=== PATIENT | female | born 1935 | race Caucasian/White ===

== ENCOUNTER 2019-03-14 09:36 | Inpatient (IN) ==
[2019-03-14] MEDS ORDERED: Triamcinolone Acet 0.1% CRM 15 GM TUBE TP PRN (13:54)
[2019-03-14] MEDS ORDERED: Mag Hydrox/Al Hydrox/Simeth 30 ML UDC PO PRN (14:43)
[2019-03-14] MEDS ORDERED: Melatonin 3 MG TABLET PO PRN (14:43)
[2019-03-14] MEDS ORDERED: Ondansetron ODT 4 MG TAB.RAPDIS SL PRN (14:43)
[2019-03-14] MEDS: Famotidine 20 MG TABLET PO SCH (20:45)
[2019-03-14] MEDS: *HR* HYDROcodone/Acet 5/325 mg TABLET PO PRN (20:45)
[2019-03-15] MEDS: *HR* Enoxaparin 40 MG/0.4 ML SYRINGE SQ SCH (06:56)
[2019-03-15 07:00] LABS: Basophils # 0.1 K/mcL (0.0-0.2); Basophils % 1.1 %; Eosinophils # 0.2 K/mcL (0.0-0.6); Eosinophils % 4.3 %; Hematocrit 34.5 % (35.3-44.9); Hemoglobin 10.8 g/dL (11.5-15.4); Immature Granulocytes % 0.2 % (0-4); Lymphocytes # 1.7 K/mcL (0.6-4.6); Lymphocytes % 29.7 %; Mean Corpuscular HGB Conc 31.3 g/dL (31.6-35.5); Mean Corpuscular Hemoglobin 25.7 pg (28.0-33.3); Mean Corpuscular Volume 82.1 fL (83.0-100.0); Mean Platelet Volume 8.8 fL (9.4-12.4); Monocytes # 0.6 K/mcL (0.0-1.3); Platelet Count 282 K/mcL (140-400); Red Cell Distribution Width 15.2 % (11.5-14.5); Segmented Neutrophils % 53.7 %; White Blood Count 5.6 K/mcL (4.3-11.1)
[2019-03-15 07:19] LABS: Alanine Aminotransferase 11 Units/L (7-52); Albumin 3.8 g/dL (3.5-5.7); Albumin/Globulin Ratio 1.8 (1.1-2.2); Alkaline Phosphatase 41 Units/L (34-104); Aspartate Amino Transferase 12 Units/L (13-39); BUN/Creatinine Ratio 26 (6-26); Bilirubin,Total 0.3 mg/dL (0.3-1.0); Blood Urea Nitrogen 19 mg/dL (8-23); Calcium 9.7 mg/dL (8.6-10.3); Carbon Dioxide 29 mEq/L (23-29); Chloride 101 mEq/L (98-107); Globulin 2.1 g/dL (2.4-3.5); Glucose 114 mg/dL (70-105); Magnesium 1.8 mg/dL (1.6-2.6); Osmolality,Calculated 285 (280-300); Potassium 4.4 mEq/L (3.5-5.1); Sodium 136 mEq/L (136-145); Total Protein 5.9 g/dL (6.4-8.9); eGFR For African Americans > 60 (> 60); eGFR For Non-African Americans > 60 (> 60)
[2019-03-15] MEDS: Metoprolol XL (24 HR) Succ 50 MG TAB.ER.24H PO SCH (09:32)
[2019-03-15] MEDS: *HR* HYDROcodone/Acet 5/325 mg TABLET PO PRN ×2 (09:32→20:40)
[2019-03-15] MEDS: Multivit/Ca/Min/Fe/FA 1 TAB TABLET PO SCH (09:32)
[2019-03-15] MEDS: Famotidine 20 MG TABLET PO SCH ×2 (09:32→20:40)
[2019-03-15] MEDS: Cholecalciferol (D-3) 1,000 UNIT (25MCG) TABLET PO SCH (09:32)
[2019-03-15] MEDS: Lisinopril 20 MG TABLET PO SCH (09:32)
[2019-03-15] MEDS: amLODIPine 5 MG TABLET PO SCH (09:32)
[2019-03-15] MEDS: Tiotropium 18 MCG inhalation IH SCH (09:36)
[2019-03-15] MEDS: Albuterol 2.5 MG/3 ML NEBULIZER IH PRN ×3 (09:44→21:11)
[2019-03-15] MEDS ORDERED: Bisacodyl 10 MG RECTAL SUPPOSITORY RC SCH (10:47)
--- NOTE | 2019-03-15 11:09 | Internal Med History&Physical ---
Date of Encounter: 03/15/19 Time of Encounter: 11:07 Assessment and Plan (1) General weakness Current visit: Yes Status: Acute PT and OT to eval and treat. Assist with ADLs as necessary. (2) HTN (hypertension) Current visit: Yes Status: Chronic Controlled with current medication. Monitor blood pressure. Qualifiers: Hypertension type: essential hypertension Qualified Code(s): I10 - Essential (primary) hypertension (3) CAD (coronary artery disease) Current visit: Yes Status: Chronic Denies chest pain. Continue current medication. Carotid duplex shows bilateral non-stenotic plaque. Last echocardiogram was in August 2018. Had 2 stents placed in 2004 and 1 and 2009. Qualifiers: Coronary Disease-Associated Artery/Lesion type: unspecified vessel or lesion type [place] vs. transplanted heart: [place] heart Associated angina: without angina Qualified Code(s): I25.10 - Atherosclerotic heart disease of [place] coronary artery without angina pectoris (4) Dizziness Current visit: Yes Status: Acute Improving. Continue PT and OT. Will follow progress. (5) Headache Current visit: Yes Status: Acute Improving. Follow up with neurology as scheduled. Qualifiers: Headache type: unspecified Headache chronicity pattern: chronic headache Intractability: not intractable Qualified Code(s): R51 - Headache (6) COPD (chronic obstructive pulmonary disease) Current visit: Yes Status: Chronic Controlled with inhaled meds. Monitor. Qualifiers: COPD type: unspecified COPD Qualified Code(s): J44.9 - Chronic obstructive pulmonary disease, unspecified Internal Medicine - H&P: HPI Admitted From: Hospital to Hospital Transfer Plans for Post Hospital Care: Home History of present illness: Ms. Pizarro is a 84 year old female admitted to inpatient rehab unit for general weakness and dizziness. Transferred from [facility] after presenting to the emergency room with dizziness and headache. CT of head without acute abnormality but shows extensive small and large vessel disease. States that headache and dizziness is starting to resolve. Past medical history includes hypertension, COPD, CAD status post cabbage, hyperlipidemia, CBD, PAD, CKD stage2. Denies fever, chills, nausea vomiting or diarrhea. Denies shortness of breath or chest pain. States she has been constipated discussed dulcolax today. Lives at home with son. PT and OT to eval and treat. Past Med Surg Social Fam HX - Past Medical History Medical history: arthritis, cancer, COPD, coronary artery disease, DVT, GERD, hyperlipidemia, hypertension, malignancy, myocardial infarction, pulmonary embolus, renal disease Additional medical history: bladder cancer. vertigo Psychiatric history: anxiety - Past Surgical History Surgical History: angioplasty/stent, appendectomy, cancer surgery, cholecystectomy, coronary bypass (CABG), herniorrhaphy, hysterectomy, knee replacement, orthopedic, other, UZAIR/BSO Additional surgical history: RTKR. bowel surgery. tonsillectomy. L thumb reattachment - Social History Smoking Status: Former smoker Smokeless Tobacco Status: No Alcohol use: none Drug use: none - Family History Mother Living Status: Hx Family Cardiac Disorders: Yes Hx Family Cancer: Yes Internal Medicine - H&P: Meds Albuterol Neb [Proventil Neb] 2.5 mg IH TID PRN 03/10/19 [History] Albuterol Sulfate [Proventil Inhaler] 2 puff IH Q6H PRN 03/10/19 [History] Atorvastatin Calcium [Lipitor] 20 mg PO HS 03/10/19 [History] Cholecalciferol (D-3) [Vitamin D] 2,000 unit PO DAILY 03/10/19 [History] Clopidogrel [Plavix] 75 mg PO DAILY 03/10/19 [History] Lisinopril [Zestril] 40 mg PO DAILY 03/10/19 [History] Metoprolol Succinate 100 mg PO DAILY 03/10/19 [History] Multivitamin [One Daily Multivitamin] 1 tab PO DAILY 03/10/19 [History] Omeprazole [PriLOSEC] 40 mg PO DAILY 03/10/19 [History] Ranitidine HCl [Heartburn Relief] 150 mg PO BID 03/10/19 [History] Tiotropium [Spiriva] 1 puff IH DAILY 03/10/19 [History] Triamcinolone Acetonide 1 applic TP BID PRN 03/10/19 [History] HYDROcodone/Acet 5/325 mg [[place] 5-325 mg] 1 tab PO BID PRN 5 Days #10 tablet 03/14/19 [Rx] Meclizine [Antivert] 12.5 mg PO TID PRN #20 tablet 03/14/19 [Rx] amLODIPine [Norvasc] 10 mg PO DAILY tablet 03/14/19 [Rx] Allergy/AdvReac Type Severity Reaction Status Date / Time cephalexin Allergy Rash Verified 10/15/18 07:50 doxycycline AdvReac Gastrointestinal Verified 10/15/18 07:50 Upset meperidine AdvReac Gastrointestinal Verified 10/15/18 07:50 Upset Penicillins AdvReac YEAST Verified 10/15/18 07:50 INFECTION pravastatin AdvReac Gastrointestinal Verified 10/15/18 07:50 Upset Sulfa (Sulfonamide AdvReac Gastrointestinal Verified 10/15/18 07:50 Antibiotics) Upset All Systems PM: A 10-system review of systems was performed and is negative for pertinent findings except as documented above in the HPI. - Constitutional Constitutional: no chills, no fever(s), no night sweats - EENT Eyes: no change in vision, no discharge, no pain, no photophobia Ears: no ear discharge, no ear pain, no tinnitus Nose, mouth and throat: no dysphagia, no nasal discharge, no neck pain, no sore throat - Cardiovascular Cardiovascular ROS IM: no chest pain, no diaphoresis, no dyspnea, no lightheadedness, no palpitations, no syncope - Respiratory Respiratory: no cough, no dyspnea, no wheezing, no excessive phlegm production - Gastrointestinal Gastrointestinal: no abdominal pain, no diarrhea, no hematemesis, no hematochezia, no melena, no nausea, no vomiting - Genitourinary Genitourinary: no change in urinary stream, no dysuria, no flank pain, no hematuria - Musculoskeletal Musculoskeletal ROS IM: no numbness, no tingling - Integumentary Integumentary IM: no rash, no unusual bruising - Neurological Neurological ROS: no confusion, no convulsions, no focal weakness, no numbness, no tingling, no tremor(s) - Hematologic/Lymphatic Hematologic/Lymphatic: no easy bruising - Constitutional Vitals: Temp Pulse Resp BP Pulse Ox 99 F 61 18 149/62 95 03/15/19 06:40 03/15/19 06:40 03/15/19 09:46 03/15/19 06:40 03/15/19 09:46 General appearance: Present: cooperative, A&O X 3, pleasant, no acute distress, answers questions appropriately - Head Head exam: Present: atraumatic, normocephalic - Eye Eye exam: Present: PERRL, conjuntiva pink, sclera anicteric Pupils: Present: PERRL - Neck Neck exam general surgery: Present: supple, trachea midline. Absent: lymphadenopathy - Respiratory Respiratory exam: Present: CTAB. Absent: accessory muscle use, rales, rhonchi, wheezes - Cardiovascular Cardiovascular exam: Present: RRR, +S1, +S2. Absent: diastolic murmur, gallop, rubs, systolic murmur - GI/Abdominal GI/Abdominal exam: Present: normal bowel sounds, soft, no peritoneal signs. Absent: distended, tenderness - Extremities Exam Extremities exam: Present: warm, radial pulses palpable and symmetrical. Absent: calf tenderness, cyanotic, pedal edema - Neurological Exam Neurological exam: Present: CN II-XII intact, oriented X3, no focal deficits. Absent: pronater drift, facial droop, speech deficit - Skin Skin exam: Present: dry, intact Internal Med - H&P Results - Labs CBC & Chem 7: 03/15/19 06:45 03/15/19 06:45 Labs: Short CBC 03/15/19 Range/Units 06:45 WBC 5.6 (4.3-11.1) K/mcL Hgb 10.8 L (11.5-15.4) g/dL Hct 34.5 L (35.3-44.9) % Plt Count 282 (140-400) K/mcL Neutrophils # 3.0 (1.6-8.9) K/mcL BMP 03/15/19 06:45 Sodium 136 Potassium 4.4 Chloride 101 Carbon Dioxide 29 BUN 19 Creatinine 0.74 Glucose 114 H Calcium 9.7 Liver Function 03/15/19 Range/Units 06:45 Total Bilirubin 0.3 (0.3-1.0) mg/dL AST 12 L (13-39) Units/L ALT 11 (7-52) Units/L Alkaline Phosphatase 41 (34-104) Units/L Albumin 3.8 (3.5-5.7) g/dL
[2019-03-15] MEDS ORDERED: Bisacodyl 10 MG RECTAL SUPPOSITORY RC PRN (17:18)
[2019-03-16] MEDS: Acetaminophen 325 MG TABLET PO PRN ×2 (03:03→16:27)
[2019-03-16] MEDS: *HR* Enoxaparin 40 MG/0.4 ML SYRINGE SQ SCH (05:18)
[2019-03-16] MEDS: Cholecalciferol (D-3) 1,000 UNIT (25MCG) TABLET PO SCH (07:46)
[2019-03-16] MEDS: Multivit/Ca/Min/Fe/FA 1 TAB TABLET PO SCH (07:47)
[2019-03-16] MEDS: amLODIPine 5 MG TABLET PO SCH (07:47)
[2019-03-16] MEDS: Metoprolol XL (24 HR) Succ 50 MG TAB.ER.24H PO SCH (07:47)
[2019-03-16] MEDS: Lisinopril 20 MG TABLET PO SCH (07:47)
[2019-03-16] MEDS: Famotidine 20 MG TABLET PO SCH ×2 (07:47→21:05)
[2019-03-16] MEDS: *HR* HYDROcodone/Acet 5/325 mg TABLET PO PRN ×2 (07:53→21:05)
[2019-03-16] MEDS: Tiotropium 18 MCG inhalation IH SCH (10:01)
--- NOTE | 2019-03-16 11:08 | Internal Med Progress Note ---
Date of Encounter: 03/16/19 Time of Encounter: 11:06 - Assessment and plan (1) General weakness Current Visit: Yes Status: Acute Assessment and plan: Continue PT and OT. Will follow progress. (2) HTN (hypertension) Current Visit: Yes Status: Chronic Assessment and plan: Controlled with current medication. Monitor blood pressure. Qualifiers: Hypertension type: essential hypertension Qualified Code(s): I10 - Essential (primary) hypertension (3) CAD (coronary artery disease) Current Visit: Yes Status: Chronic Assessment and plan: Denies chest pain. Continue current medication. Qualifiers: Coronary Disease-Associated Artery/Lesion type: unspecified vessel or lesion type [place] vs. transplanted heart: [place] heart Associated angina: without angina Qualified Code(s): I25.10 - Atherosclerotic heart disease of [place] coronary artery without angina pectoris (4) Dizziness Current Visit: Yes Status: Acute Assessment and plan: Improving. Continue meclizine as needed. (5) COPD (chronic obstructive pulmonary disease) Current Visit: Yes Status: Chronic Assessment and plan: Controlled with current medication. Qualifiers: COPD type: unspecified COPD Qualified Code(s): J44.9 - Chronic obstructive pulmonary disease, unspecified - Time Spent With Patient less than 15 minutes - Subjective Interval history: Participating well with therapy. Denies pain. States dizziness is improving. Denies fever, chills, nausea vomiting or diarrhea. Denies shortness of breath or chest pain. Denies urinary or bowel issues. - Constitutional Vitals: Temp Pulse Resp BP Pulse Ox 97.6 F 67 18 129/82 97 03/16/19 07:00 03/16/19 07:00 03/16/19 10:01 03/16/19 07:00 03/16/19 10:01 General appearance: Present: cooperative, A&O X 3, pleasant, no acute distress, answers questions appropriately - Head Head exam: Present: atraumatic, normocephalic - Eye Eye exam: Present: PERRL, conjuntiva pink, sclera anicteric Pupils: Present: PERRL - Neck Neck exam general surgery: Present: supple, trachea midline. Absent: lymphadenopathy - Respiratory Respiratory exam: Present: CTAB. Absent: accessory muscle use, rales, rhonchi, wheezes - Cardiovascular Cardiovascular exam: Present: RRR, +S1, +S2. Absent: diastolic murmur, gallop, rubs, systolic murmur - GI/Abdominal GI/Abdominal exam: Present: normal bowel sounds, soft, no peritoneal signs. Absent: distended, tenderness - Extremities Exam Extremities exam: Present: warm, radial pulses palpable and symmetrical. Absent: calf tenderness, cyanotic, pedal edema - Neurological Exam Neurological exam: Present: CN II-XII intact, oriented X3, no focal deficits. Absent: pronater drift, facial droop, speech deficit - Skin Skin exam: Present: dry, intact Internal Medicine: Result - Labs CBC & Chem 7: 03/15/19 06:45 03/15/19 06:45 Consult Discharge Plan - Plan Referrals: Carmen Haile DO [Primary Care Provider] -
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
[2019-03-16] MEDS: Albuterol 2.5 MG/3 ML NEBULIZER IH PRN (21:18)
[2019-03-17] MEDS: Acetaminophen 325 MG TABLET PO PRN ×2 (05:10→15:28)
[2019-03-17] MEDS: *HR* Enoxaparin 40 MG/0.4 ML SYRINGE SQ SCH (06:13)
[2019-03-17] MEDS ORDERED: cloNIDine HCl 0.1 MG TABLET PO PRN (08:08)
[2019-03-17] MEDS: Multivit/Ca/Min/Fe/FA 1 TAB TABLET PO SCH (08:33)
[2019-03-17] MEDS: Famotidine 20 MG TABLET PO SCH ×2 (08:33→20:10)
[2019-03-17] MEDS: Lisinopril 20 MG TABLET PO SCH (08:33)
[2019-03-17] MEDS: Cholecalciferol (D-3) 1,000 UNIT (25MCG) TABLET PO SCH (08:33)
[2019-03-17] MEDS: amLODIPine 5 MG TABLET PO SCH (08:33)
[2019-03-17] MEDS: Metoprolol XL (24 HR) Succ 50 MG TAB.ER.24H PO SCH (08:33)
[2019-03-17] MEDS: *HR* HYDROcodone/Acet 5/325 mg TABLET PO PRN ×2 (08:48→20:10)
[2019-03-17] MEDS ORDERED: MOM Conc 10 ML UD.LIQ PO PRN (08:53)
[2019-03-17] MEDS: Tiotropium 18 MCG inhalation IH SCH (09:19)
--- NOTE | 2019-03-17 09:26 | Internal Med Progress Note ---
Date of Encounter: 03/17/19 Time of Encounter: 09:23 - Assessment and plan (1) Vertigo Current Visit: No Status: Acute Assessment and plan: Patient currently denies any dizziness while in therapy. Patient appears relaxed states that therapy is progressing well for her and she is anxious to be discharged tomorrow. Denies any symptoms of near-syncope. Denies palpitations or chest discomforts (2) CAD (coronary artery disease) Current Visit: No Status: Acute Assessment and plan: No acute issues. Patient denies any chest discomforts or palpitations. We will continue with current medications and continue with therapy Qualifiers: Coronary Disease-Associated Artery/Lesion type: unspecified vessel or lesion type [place] vs. transplanted heart: unspecified whether [place] or transplanted heart Associated angina: angina presence unspecified Qualified Code(s): I25.10 - Atherosclerotic heart disease of [place] coronary artery without angina pectoris (3) COPD (chronic obstructive pulmonary disease) Current Visit: Yes Status: Chronic Assessment and plan: No acute issues. Lungs are clear throughout with diminished bases. No productive cough noted. Patient denies any dyspnea during exertion. We will continue with current medications and bronchodilators. Qualifiers: COPD type: unspecified COPD Qualified Code(s): J44.9 - Chronic obstructive pulmonary disease, unspecified (4) HTN (hypertension) Current Visit: Yes Status: Chronic Assessment and plan: Vital signs remained stable. We will continue with current medications. Qualifiers: Hypertension type: essential hypertension Qualified Code(s): I10 - Ess ential (primary) hypertension (5) Adjustment disorder with anxiety Current Visit: Yes Status: Acute Assessment and plan: No acute issues noted. No behavior issues reported overnight per nursing. Patient interaction with staff and during evaluation was good. We will continue to monitor. Patient seen by psychology yesterday with recommendations received - Time Spent With Patient less than 15 minutes - Subjective Interval history: Patient appears relaxed and currently denies any discomforts or shortness of breath. Patient denies any palpitations or dizziness. Patient states that her therapy is progressing well and that she is excited about being discharged back to home tomorrow. Patient states that she has an upcoming follow-up visit with her primary care physician. She does relate she has had elevations in her blood pressure, which today her systolic is at 170. - Constitutional Vitals: Temp Pulse Resp BP Pulse Ox 97.6 F 78 15 170/66 97 03/17/19 07:46 03/17/19 07:46 03/17/19 07:46 03/17/19 07:46 03/17/19 07:46 General appearance: Present: cooperative, A&O X 3, pleasant, no acute distress, answers questions appropriately - Head Head exam: Present: atraumatic, normocephalic - Eye Eye exam: Present: PERRL, conjuntiva pink, sclera anicteric Pupils: Present: PERRL - Neck Neck exam general surgery: Present: supple, trachea midline. Absent: lymphadenopathy - Respiratory Respiratory exam: Present: decreased breath sounds, CTAB. Absent: accessory muscle use, rales, rhonchi, wheezes - Cardiovascular Cardiovascular exam: Present: RRR, +S1, +S2. Absent: diastolic murmur, gallop, rubs, systolic murmur - GI/Abdominal GI/Abdominal exam: Present: normal bowel sounds, soft, no peritoneal signs. Absent: distended, tenderness - Extremities Exam Extremities exam: Present: normal inspection, warm, radial pulses palpable and symmetrical. Absent: calf tenderness, cyanotic, pedal edema - Neurological Exam Neurological exam: Present: CN II-XII intact, oriented X3, no focal deficits. A bsent: pronater drift, facial droop, speech deficit - Skin Skin exam: Present: dry, intact Internal Medicine: Result - Labs CBC & Chem 7: 03/15/19 06:45 03/15/19 06:45 Consult Discharge Plan - Plan Referrals: Carmen Haile DO [Primary Care Provider] -
[2019-03-18] MEDS: Acetaminophen 325 MG TABLET PO PRN (03:04)
[2019-03-18] MEDS: Albuterol 2.5 MG/3 ML NEBULIZER IH PRN (03:08)
[2019-03-18] MEDS: *HR* Enoxaparin 40 MG/0.4 ML SYRINGE SQ SCH (05:45)
[2019-03-18] MEDS: Tiotropium 18 MCG inhalation IH SCH (07:24)
[2019-03-18 07:41] VITALS: BP 132/52
[2019-03-18] MEDS: Lisinopril 20 MG TABLET PO SCH (08:20)
[2019-03-18] MEDS: Famotidine 20 MG TABLET PO SCH (08:21)
[2019-03-18] MEDS: Multivit/Ca/Min/Fe/FA 1 TAB TABLET PO SCH (08:21)
[2019-03-18] MEDS: Cholecalciferol (D-3) 1,000 UNIT (25MCG) TABLET PO SCH (08:21)
[2019-03-18] MEDS: amLODIPine 5 MG TABLET PO SCH (08:21)
[2019-03-18] MEDS: Metoprolol XL (24 HR) Succ 50 MG TAB.ER.24H PO SCH (08:21)
--- NOTE | 2019-03-18 09:08 | Discharge Summary ---
Date of Encounter: 03/18/19 Time of Encounter: 09:05 - Discharge Diagnosis (1) General weakness Priority: Primary Status: Acute Comments: Improving. Continue outpatient therapy. (2) HTN (hypertension) Priority: Secondary Status: Chronic Comments: Controlled with current medication. Follow up with PCP. Qualifiers: Hypertension type: essential hypertension Qualified Code(s): I10 - Essential (primary) hypertension (3) CAD (coronary artery disease) Priority: Secondary Status: Chronic Comments: Denies chest pain. Follow up with PCP. Qualifiers: Coronary Disease-Associated Artery/Lesion type: unspecified vessel or lesion type [place] vs. transplanted heart: [place] heart Associated angina: without angina Qualified Code(s): I25.10 - Atherosclerotic heart disease of [place] coronary artery without angina pectoris (4) Dizziness Priority: Primary Status: Acute Comments: Improving. Denies dizziness this time. Follow up with PCP within one week. (5) COPD (chronic obstructive pulmonary disease) Priority: Secondary Status: Chronic Comments: Controlled with current medication. Follow up with PCP. Qualifiers: COPD type: unspecified COPD Qualified Code(s): J44.9 - Chronic obstructive pulmonary disease, unspecified Hospital course: Ms. Pizarro is a 84 year old female discharging to home with son. Was admitted to inpatient rehab for general weakness and dizziness. Transferred from [facility] after presenting to the emergency room with dizziness and headache. CT of head without acute abnormality but shows extensive small and large vessel disease. States that headache and dizziness is resolved. Past medical history includes hypertension, COPD, CAD status post cabbage, hyperlipidemia, CBD, PAD, CKD stage2. Denies fever, chills, nausea vomiting or diarrhea. Denies shortness of breath or chest pain. Instructed to follow up with PCP within one week. Discharge discussed with: patient, nurse, social work - Time Spent with Patient Total time spent providing and/or coordinating discharge services: Time spent: Less than 30 minutes - Discharge Medications Prescriptions: No Action Multivitamin [One Daily Multivitamin] 1 tab PO DAILY Cholecalciferol (D-3) [Vitamin D] 2,000 unit PO DAILY Albuterol Sulfate [Proventil Inhaler] 2 puff IH Q6H PRN PRN Reason: Shortness Of Breath Tiotropium [Spiriva] 1 puff IH DAILY Ranitidine HCl [Heartburn Relief] 150 mg PO BID Omeprazole [PriLOSEC] 40 mg PO DAILY Lisinopril [Zestril] 40 mg PO DAILY Atorvastatin Calcium [Lipitor] 20 mg PO HS Triamcinolone Acetonide 1 applic TP BID PRN PRN Reason: IRRITATION Metoprolol Succinate 100 mg PO DAILY Clopidogrel [Plavix] 75 mg PO DAILY Albuterol Neb [Proventil Neb] 2.5 mg IH TID PRN PRN Reason: Shortness Of Breath Meclizine [Antivert] 12.5 mg PO TID PRN #20 tablet PRN Reason: Vertigo amLODIPine [Norvasc] 10 mg PO DAILY tablet HYDROcodone/Acet 5/325 mg [[place] 5-325 mg] 1 tab PO BID PRN 5 Days #10 tablet PRN Reason: Pain Home Medications: Albuterol Neb [Proventil Neb] 2.5 mg IH TID PRN 03/10/19 [History] Albuterol Sulfate [Proventil Inhaler] 2 puff IH Q6H PRN 03/10/19 [History] Atorvastatin Calcium [Lipitor] 20 mg PO HS 03/10/19 [History] Cholecalciferol (D-3) [Vitamin D] 2,000 unit PO DAILY 03/10/19 [History] Clopidogrel [Plavix] 75 mg PO DAILY 03/10/19 [History] Lisinopril [Zestril] 40 mg PO DAILY 03/10/19 [History] Metoprolol Succinate 100 mg PO DAILY 03/10/19 [History] Multivitamin [One Daily Multivitamin] 1 tab PO DAILY 03/10/19 [History] Omeprazole [PriLOSEC] 40 mg PO DAILY 03/10/19 [History] Ranitidine HCl [Heartburn Relief] 150 mg PO BID 03/10/19 [History] Tiotropium [Spiriva] 1 puff IH DAILY 03/10/19 [History] HYDROcodone/Acet 5/325 mg [[place] 5-325 mg] 1 tab PO BID PRN 5 Days #10 tablet 03/14/19 [Rx] Meclizine [Antivert] 12.5 mg PO TID PRN #20 tablet 03/14/19 [Rx] amLODIPine [Norvasc] 10 mg PO DAILY tablet 03/14/19 [Rx] Acetaminophen [Tylenol] 650 mg PO Q6HR PRN tablet 03/18/19 [Rx] Allergies/Adverse Reactions: Allergy/AdvReac Type Severity Reaction Status Date / Time cephalexin Allergy Rash Verified 10/15/18 07:50 doxycycline AdvReac Gastrointestinal Verified 10/15/18 07:50 Upset meperidine AdvReac Gastrointestinal Verified 10/15/18 07:50 Upset Penicillins AdvReac YEAST Verified 10/15/18 07:50 INFECTION pravastatin AdvReac Gastrointestinal Verified 10/15/18 07:50 Upset Sulfa (Sulfonamide AdvReac Gastrointestinal Verified 10/15/18 07:50 Antibiotics) Upset Date of admission: 03/14/19 13:39 Primary care physician: Richard Munoz Consults: 03/14/19 14:24 Consult to Pastoral Services [CONS] Routine Comment: 03/14/19 14:38 Consult to Occupational Therapy [CONS] Routine Comment: Evaluate, develop and implement POC Reason for Consult: rehab; deconditioning/vertigo Does patient have active BEDREST order?: No Is patient medically & hemodynamically stable?: Yes Patient assessed for mobility or mobilized this visit?: Yes Consult to Physical Therapy [CONS] Routine Comment: Evaluate, develop and implement POC Reason for Consult: rehab; deconditioning/vertigo Does patient have active BEDREST order?: No Is patient medically & hemodynamically stable?: Yes Patient assessed for mobility or mobilized this visit?: Yes Consult to Recreational Therapy [CONS] Routine Comment: Evaluate, develop and implement POC Consult to [facility] [place] [facility] [CONS] Routine Reason for SW Consult: rehab; deconditioning/vertigo 03/16/19 08:43 Consult to Psychology [CONS] Routine Consulting Provider: Aneta Zuniga Reason for Consult: Possible depression; adjustment disorder Time Notified: 08:44 Call Completed: No Discharging clinician: Trev High Anticipated date of discharge: 03/18/19 - Constitutional Vitals: Temp Pulse Resp BP Pulse Ox 97.6 F 72 15 132/52 95 03/18/19 07:40 03/18/19 07:40 03/18/19 07:40 03/18/19 07:40 03/18/19 07:40 General appearance: Present: cooperative, A&O X 3, pleasant, no acute distress, answers questions appropriately - Head Head exam: Present: atraumatic, normocephalic - Eye Eye exam: Present: PERRL, conjuntiva pink, sclera anicteric Pupils: Present: PERRL - Neck Neck exam general surgery: Present: supple, trachea midline. Absent: lymphadenopathy - Respiratory Respiratory exam: Present: CTAB. Absent: accessory muscle use, rales, rhonchi, wheezes - Cardiovascular Cardiovascular exam: Present: RRR, +S1, +S2. Absent: diastolic murmur, gallop, rubs, systolic murmur - GI/Abdominal GI/Abdominal exam: Present: normal bowel sounds, soft, no peritoneal signs. Absent: distended, tenderness - Extremities Exam Extremities exam: Present: warm, radial pulses palpable and symmetrical. Absent: calf tenderness, cyanotic, pedal edema - Neurological Exam Neurological exam: Present: CN II-XII intact, oriented X3, no focal deficits. Absent: pronater drift, facial droop, speech deficit - Skin Skin exam: Present: dry, intact - Patient Status Disposition: Home, Self-Care Condition: Good Functional capacity at discharge: independent ambulation Overall status at discharge: patient is progressing back to baseline - Discharge Instructions Follow Up With: Carmen Haile DO [Primary Care Provider] - - Diet and Activity Activity: as per physical therapy Diet: advance to your usual diet
[2019-03-18] MEDS: *HR* HYDROcodone/Acet 5/325 mg TABLET PO PRN (11:27)
== END 2019-03-18 11:55 | disposition home or self-care (01) | DRG 946 ==
LOC: INPGRE 13:39